=== PATIENT | female | born 1960 | race Caucasian/White ===

== ENCOUNTER 2019-09-03 15:40 | Outpatient (CLI) | payer MEDICARE ==
--- NOTE | 2019-09-03 16:15 | RAD ---
3 lateral projections of the cervical spine (neutral, flexion and extension lobes.: 09/03/2019 12:00 AM CLINICAL HISTORY: Neck pain COMPARISON: None Bones: No acute fracture demonstrated. Intervertebral disc spaces and facet complexes: There is ankylosis of C4-C6. There is advanced disc d egenerative disease at C6-7. There is mild disc degenerative disease at C2-3, C3-4 and C7-T1. Spinal alignment: There is anterior translation of C2 on C3 and C3 on C4 with mild retrolisthesis of C6 on C7. The anterior translation of C2 on C3 is accentuated in flexion but does not completely reduce with extension. The anterior translation of C3 on C4 is slightly accentuated with flexion and reduces fully with extension. The retrolisthesis of C6 on C7 demonstrates no abnormal translational motion. There is accentuated kyphosis centered at C5. The atlantodens interval appears within normal limits. Prevertebral soft tissues: Normal. Lateral masses: Not well evaluated Lung apices: Clear. Additional findings: None. 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 There is abnormal transla tional motion seen at C2-3 and C3-4. There is prominent accentuated kyphosis centered at the C5 vertebral body.
== END 2019-09-03 15:41 | disposition home or self-care (01) ==
LOC: TBSIIMAG 15:40
PROVIDERS: ATTEND Neurological Surgery
DX: M54.2 Cervicalgia (principal); M47.812 Spondylosis without myelopathy or radiculopathy, cervical region; M43.22 Fusion of spine, cervical region; M40.202 Unspecified kyphosis, cervical region
CPT/HCPCS: 72040